=== PATIENT | female | born 1990 | race Caucasian/White ===

== ENCOUNTER 2022-12-07 18:05 | Emergency (ER) | payer OTHER ==
[2022-12-07] MEDS ORDERED: LORazepam 2 MG/ML VIAL ONE ×2 (18:40→20:54)
[2022-12-07] MEDS ORDERED: Ringers Lactate 1,000 ML IV ONE (18:41)
[2022-12-07 19:47] LABS: Absolute Lymphocytes (CBC) 2.2 K/uL (0.7-4.9); Hematocrit 34.4 % (36.0-45.0); MCV 86.8 fL (80-100); MPV 6.9 fL (7.6-11.3); RBC Red Blood Cell Count 3.96 M/uL (3.86-4.86)
[2022-12-07 20:02] LABS: Albumin 3.6 g/dL (3.4-5.0); Bilirubin Total 0.2 mg/dL (0.2-1.0); Potassium 4.2 mEq/L (3.5-5.1); Protein, Total 7.4 g/dL (6.4-8.2)
[2022-12-07] MEDS ORDERED: METOCLOPRAMIDE 10 MG/2mL INJ ONE (20:20)
[2022-12-07] MEDS ORDERED: KETOROLAC 30 MG/ML INJ ONE (20:21)
[2022-12-07] MEDS ORDERED: DIPHENHYDRAMINE 50 MG/ML VIAL ONE (20:21)
--- NOTE | 2022-12-07 21:46 | EDPHYS ---
Physician Documentation [facility] Name: Renetta Mayfield Age: 32 yrs Sex: Female : 1990 Arrival Date: 12/07/2022 Time: 18:05 Bed 2 Private MD: ED Physician Ken Aguirre HPI: 12/07 18:33 This 32 yrs old Female presents to ER via EMS with complaints of Probable Seizure. ms3 18:33 32-year-old female with past medical history of nonepileptic seizures presents via [address] for seizures. EMS states they administered 2 mg Ativan prior to arrival. Patient states she has been having seizures for the last week. Patient was recently hospitalized at [facility] in [place] where she had a work-up with CT scans and EEG and was diagnosed with nonepileptic seizures. Patient states her physician gave her Haldol and Benadryl and she has not had any relief.. 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 - Social history:: Smoking status: Reported history of juuling and/or vaping. Patient uses alcohol, but reports only rare drinking. street drugs, marijuana. ROS: 18:33 Constitutional: Negative for fever, and chills. Neck: Negative for injury, pain, and ms3 swelling, Cardiovascular: Negative for chest pain, and palpitations. Respiratory: Negative for shortness of breath, cough, wheezing, and pleuritic chest pain, Abdomen/GI: Negative for abdominal pain, nausea, vomiting, diarrhea, and constipation, Skin: Negative for injury, rash, and discoloration. 18:33 Neuro: Positive for seizure activity. Exam: 18:33 Constitutional: This is a well developed, well nourished patient who is awake, alert, ms3 and in no acute distress. Head/Face: Normocephalic, atraumatic. Neck: Trachea midline, no cervical lymphadenopathy. Supple, full range of motion without nuchal rigidity, or vertebral point tenderness. No Meningismus. Chest/axilla: Normal chest wall appearance and motion. Nontender with no deformity. Cardiovascular: Regular rate and rhythm with a normal S1 and S2. No gallops, murmurs, or rubs. Normal PMI, no JVD. No pulse deficits. Respiratory: Lungs have equal breath sounds bilaterally, clear to auscultation and percussion. No rales, rhonchi or wheezes noted. No increased work of breathing, no retractions or nasal flaring. Abdomen/GI: Soft, non-tender, with normal bowel sounds. No distension or tympany. No guarding or rebound. No evidence of tenderness throughout. MS/ Extremity: Pulses equal, no cyanosis. Neurovascular intact. Full, normal range of motion. Neuro: Awake and alert, GCS 15, oriented to person, place, time, and situation. Cranial nerves II-XII grossly intact. Motor strength 5/5 in all extremities. Sensory grossly intact. Cerebellar exam normal. Normal gait. 20:50 ECG was reviewed by the Attending Physician. EKG time 2035, there is sinus tachycardia sp4 at 101, no ST elevation or depression, otherwise normal EKG Vital Signs: 18:24 BP 130 / 88; Pulse 117; Resp 18; Temp 97.9; Pulse Ox 100% on R/A; Weight 76.2 kg; ph 19:30 BP 102 / 67; Pulse 75; Resp 18 S; Pulse Ox 95% on R/A; as6 20:30 BP 97 / 59; Pulse 81; Resp 18 S; Pulse Ox 97% on R/A; as6 21:30 BP 131 / 54; Pulse 71; Resp 18; Pulse Ox 99% on R/A; jb4 Aaron Coma Score: 18:28 Eye Response: spontaneous(4). Motor Response: obeys commands(6). Verbal Response: ph oriented(5). Total: 15. MDM: 18:17 Patient medically screened. ms3 18:33 Differential diagnosis: cardiac arrhythmia, Rhabdo vs non-epileptic seizures. ms3 19:28 Transition of care: After a detail discussion of the patient's case, care is ms3 transferred to Ken Aguirre MD. 21:44 Differential diagnosis: drug overdose, seizure. Data reviewed: vital signs, nurses sp4 notes, lab test result(s), Beta HCG: CBC, electrolytes. ED course: Patient with history of nonepileptic seizures, arrives with generalized tremors, and headache. Patient has history of nonepileptic seizures that is being managed with Haldol and Benadryl at home. Patient states that those medicines are not helping her. Patient states CT head was done 3 weeks ago and was completely normal. Patient is here visiting from [place]. Patient's headache was managed and has slightly improved. Tremors have improved after Ativan IV. Is no sign of epileptic seizures based on examination. . 12/07 18:33 Order name: CBC with Diff; Complete Time: 21:40 ms3 12/07 18:33 Order name: CK; Complete Time: 21:40 ms3 12/07 18:33 Order name: CMP; Complete Time: 21:40 ms3 12/07 19:50 Order name: Test, Serum; Complete Time: 21:40 sp4 12/07 19:44 Order name: EKG; Complete Time: 19:45 sp4 12/07 19:44 Order name: EKG - Nurse/Tech; Complete Time: 20:46 sp4 EC:50 Rate is 101 beats/min. Rhythm is regular, Sinus tachycardia. QRS [place] is Normal. CA sp4 interval is normal. QRS interval is normal. QT interval is normal. T waves are Normal. No ST changes noted. Clinical impression: No evidence of ischemia. Interpreted by me. Administered Medications: 19:24 Drug: Ativan IVP 2 mg Route: IVP; Site: right antecubital; jb4 20:30 Follow up: Response: No adverse reaction; No change in condition jb4 19:24 Drug: Lactated Ringers Solution IV 1000 ml Route: IV; Rate: bolus; Site: right jb4 antecubital; 20:30 Follow up: Response: No adverse reaction; IV Status: Completed infusion; IV Intake: jb4 1000ml 20:46 Drug: diphenhydrAMINE IVP 25 mg Route: IVP; Site: right antecubital; jb4 22:10 Follow up: Response: No adverse reaction; Marked relief of symptoms jb4 20:46 Drug: metoCLOPramide IVP 10 mg Route: IVP; Site: right antecubital; jb4 22:10 Follow up: Response: No adverse reaction; Marked relief of symptoms jb4 20:46 Drug: Ketorolac IVP 30 mg Route: IVP; Site: right antecubital; jb4 22:10 Follow up: Response: No adverse reaction jb4 20:50 Drug: Ativan IVP 1 mg Route: IVP; Site: right antecubital; jb4 22:10 Follow up: Response: No adverse reaction; Marked relief of symptoms jb4 21:56 Not Given (Patient Refused): [place] PO 10 mg-325 mg 1 tabs PO once jb4 22:05 Drug: Promethazine PO 25 mg Route: PO; jb4 22:10 Follow up: Response: Medication administered at discharge. jb4 22:10 Not Given (Medication unavailable.): Prochlorperazine IVP 10 mg IVP once jb4 Disposition Summary: 12/07/22 21:46 Discharge Ordered Location: Home sp4 Problem: new sp4 Symptoms: have improved sp4 Condition: Stable sp4 Diagnosis - Acute nonepileptic seizures, psychogenic seizures, acute tension headache, sp4 generalized fatigue Followup: sp4 - With: Private Physician - When: 7 - 10 days - Reason: Re-evaluation by your physician Discharge Instructions: - Discharge Summary Sheet sp4 - General Headache Without Cause, [id number] sp4 Forms: - Thank You Letter sp4 Prescriptions: - Ativan 2 mg Oral Tablet - take 1 tablet by ORAL route every 12 hours As needed PRN tremors and anxiety; sp4 20 tablet; Refills: 0, Product Selection Permitted Signatures: Dispatcher [employer] Елена Newby RN RN ph Bryson, James, RN RN jb4 Rick Light DO DO ms3 Ken Aguirre MD MD sp4 Corrections: (The following items were deleted from the chart) 18:27 18:16 Allergies: No Known Allergies; [facility]
--- NOTE | 2022-12-07 21:46 | ER ---
Nurse's Notes [facility] [place] Name: Renetta Mayfield Age: 32 yrs Sex: Female : 1990 Arrival Date: 12/07/2022 Time: 18:05 Bed 2 Private MD: Diagnosis: Acute nonepileptic seizures, psychogenic seizures, acute tension headache, generalized fatigue Presentation: 12/07 18:13 Chief complaint: EMS states: Intermittent seizure like activity "all day", shaking ph movements to upper body and arms that lasts approx 30 seconds then pt relaxes, no post-ictal period, Spo2 and HR remain stable during episodes, hx of " non-epileptic seizures" takes Haldol and gabapentin. 2 mg Ativan given IM. Coronavirus screen: Vaccine status: Patient reports being unvaccinated. Ebola Screen: No symptoms or risks identified at this time. Initial Sepsis Screen: Does the patient meet any 2 criteria? No. Patient's initial sepsis screen is negative. Does the patient have a suspected source of infection? No. Patient's initial sepsis screen is negative. Risk Assessment: Do you want to hurt yourself or someone else? Patient reports no desire to harm self or others. Onset of symptoms was December 07, 2022. 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 - Social history:: Smoking status: Reported history of juuling and/or vaping. Patient uses alcohol, but reports only rare drinking. street drugs, marijuana. Screenin:26 [facility] ED Fall Risk Assessment (Adult) History of falling in the last 3 months, ph including since admission No falls in past 3 months (0 pts). Abuse screen: Denies threats or abuse. Denies injuries from another. Nutritional screening: No deficits noted. Tuberculosis screening: No symptoms or risk factors identified. Assessment: 18:26 Reassessment: Pt w/ shaking noted to upper extremities,awake and alert, speaking ph throughout episodes, states that it has been ongoing > 1 week. General: Appears in no apparent distress. Pain: Complains of pain in chest. Neuro: Level of Consciousness is awake, alert, obeys commands, Oriented to person, place, time, situation. Cardiovascular: Capillary refill < 3 seconds in bilateral fingers Patient's skin is warm and dry. Respiratory: Airway is patent Respiratory effort is even, unlabored. Derm: Skin is pink, warm \\T\\ dry. 18:38 Reassessment: PT STATES SHE WILL BE UNABLE TO HOLD STILL FOR PIV PLACEMENT. PT SHOWING bp TREMULOUS MOVEMENTS WHILE RETAINING VOLUNTARY CONTROL AND SPEECH. 19:15 Reassessment: Patient and/or family updated on plan of care and expected duration. Pain jb4 level reassessed. Patient is alert, oriented x 3, equal unlabored respirations, skin warm/dry/pink. Pt having seizure like activity, is able to speak and follows commands to straighten arms for IV insertion. 20:30 Reassessment: Patient appears in no apparent distress at this time. Patient and/or jb4 family updated on plan of care and expected duration. Pain level reassessed. Patient is alert, oriented x 3, equal unlabored respirations, skin warm/dry/pink. Continues to have seizure like activity after ativan administration, reports that it is usually due to having a headache. Continues to have voluntary control over extremities and speech. 21:23 Reassessment: Patient appears in no apparent distress at this time. Patient and/or jb4 family updated on plan of care and expected duration. Pain level reassessed. Patient is alert, oriented x 3, equal unlabored respirations, skin warm/dry/pink. Pt and family denies further seizure like activity since medication administration. Patient states feeling better. Vital Signs: 18:24 BP 130 / 88; Pulse 117; Resp 18; Temp 97.9; Pulse Ox 100% on R/A; Weight 76.2 kg; ph 19:30 BP 102 / 67; Pulse 75; Resp 18 S; Pulse Ox 95% on R/A; as6 20:30 BP 97 / 59; Pulse 81; Resp 18 S; Pulse Ox 97% on R/A; as6 21:30 BP 131 / 54; Pulse 71; Resp 18; Pulse Ox 99% on R/A; jb4 Aaron Coma Score: 18:28 Eye Response: spontaneous(4). Motor Response: obeys commands(6). Verbal Response: ph oriented(5). Total: 15. ED Course: 18:13 Patient arrived in ED. ph 18:16 Triage completed. ph 18:16 Rick Light DO is Attending Physician. ms3 18:28 Patient has correct armband on for positive identification. Bed in low position. Call ph light in reach. Side rails up X2. Pulse ox on. NIBP on. 18:28 Seizure precautions initiated. ph 18:28 Arm band placed on Patient placed in an exam room. ph 18:33 Inocencio Campuzano, SILVINA is Primary Nurse. bp 19:25 Primary Nurse role handed off by Inocencio Campuzano, SILVINA wm 19:25 CMP Sent. jb4 19:25 CK Sent. jb4 19:25 CBC with Diff Sent. jb4 19:28 Attending Physician role handed off by Rick Light DO ms3 19:28 Ken Aguirre MD is Attending Physician. ms3 21:23 Carter Easton, SILVINA is Primary Nurse. jb4 22:09 No provider procedures requiring assistance completed. IV discontinued, intact, jb4 bleeding controlled, No redness/swelling at site. Pressure dressing applied. Administered Medications: 19:24 Drug: Ativan IVP 2 mg Route: IVP; Site: right antecubital; jb4 20:30 Follow up: Response: No adverse reaction; No change in condition jb4 19:24 Drug: Lactated Ringers Solution IV 1000 ml Route: IV; Rate: bolus; Site: right jb4 antecubital; 20:30 Follow up: Response: No adverse reaction; IV Status: Completed infusion; IV Intake: jb4 1000ml 20:46 Drug: diphenhydrAMINE IVP 25 mg Route: IVP; Site: right antecubital; jb4 22:10 Follow up: Response: No adverse reaction; Marked relief of symptoms jb4 20:46 Drug: metoCLOPramide IVP 10 mg Route: IVP; Site: right antecubital; jb4 22:10 Follow up: Response: No adverse reaction; Marked relief of symptoms jb4 20:46 Drug: Ketorolac IVP 30 mg Route: IVP; Site: right antecubital; jb4 22:10 Follow up: Response: No adverse reaction jb4 20:50 Drug: Ativan IVP 1 mg Route: IVP; Site: right antecubital; jb4 22:10 Follow up: Response: No adverse reaction; Marked relief of symptoms jb4 21:56 Not Given (Patient Refused): [place] PO 10 mg-325 mg 1 tabs PO once jb4 22:05 Drug: Promethazine PO 25 mg Route: PO; jb4 22:10 Follow up: Response: Medication administered at discharge. jb4 22:10 Not Given (Medication unavailable.): Prochlorperazine IVP 10 mg IVP once jb4 Medication: 18:27 VIS not applicable for this client. ph Intake: 20:30 IV: 1000ml; Total: 1000ml. jb4 Outcome: 21:46 Discharge ordered by . sp4 22:09 Discharged to home via wheelchair, with friend. jb4 22:09 Condition: stable 22:09 Discharge instructions given to patient, friend, Instructed on discharge instructions, follow up and referral plans. medication usage, Demonstrated understanding of instructions, follow-up care, medications, Prescriptions given X 1. 22:13 Patient left the ED. jb4 Signatures: Елена Wesley RN RN ph Bryson, James, RN RN jb4 Inocencio Campuzano RN RN Rick Weaver DO DO ms3 Shonda Perez Ashby, RN RN as6 Ken Aguirre MD MD sp4 Corrections: (The following items were deleted from the chart) 18: 18:16 Allergies: No Known Allergies; ph ph
[2022-12-07] MEDS ORDERED: PROMETHAZINE 25 MG TABLET ONE (22:03)
[2022-12-07 22:29] VITALS: TEMP 97.9
[2022-12-07 22:34] VITALS: BP 131/54; O2SAT 99
--- NOTE | 2022-12-08 15:18 | EKG ---
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
== END 2022-12-07 22:13 | disposition home or self-care (01) ==
LOC: ER 18:05
DX: F44.5 Conversion disorder with seizures or convulsions (principal); G44.209 Tension-type headache, unspecified, not intractable; R53.83 Other fatigue; Z88.5 Allergy status to narcotic agent
CPT/HCPCS: 93005; 85025; 36415; 82550; 84703; 80053; Q0169; J2765; J1200; J7120; 96361; 96374; 96375; 99284